=== PATIENT | female | born 1955 | race Hispanic/Latino ===

== ENCOUNTER → 2019-11-18 | Day surgery (SDC) | payer MEDICARE, OTHER ==
[2019-11-12 12:03] LABS: BASOPHILS % 0.4 % (0.0-1.0); EOSINOPHILS # (AUTO) 0.2 (0.0-0.4); EOSINOPHILS % 4.3 % (0.0-6.0); HEMATOCRIT 29.7 % (34.2-44.1); LYMPHOCYTES # (AUTO) 0.9 (1.0-3.2); LYMPHOCYTES % 16.7 % (18.0-39.1); MEAN CORPUSCULAR HEMOGLOBIN 25.8 pg (28-32); MEAN CORPUSCULAR HGB CONC 30.3 g/dL (31-35); MEAN CORPUSCULAR VOLUME 85.1 fL (81-99); MONOCYTES # (AUTO) 0.6 (0.2-0.8); MONOCYTES % 9.9 % (4.4-11.3); NEUTROPHILS # (AUTO) 3.8 (2.1-6.9); NEUTROPHILS % 67.6 % (38.7-80.0); PLATELET COUNT 332 x10e3/uL (140-360); RED BLOOD COUNT 3.49 x10e6/uL (3.6-5.1); RED CELL DISTRIBUTION WIDTH 14.8 % (11.7-14.4)
[~2019-11-18] MED LIST: DICLOFENAC TOP; FENTANYL CITRATE/PF 100MCG/2 ML INJ ONE; FUROSEMIDE40 MG PO; GABAPENTIN300 MG PO; HYDRALAZINE HCL 20 MG/ML VIAL ONE; HYDRALAZINE HCL25 MG PO; LACTULOSE20 GM/30 M PO; LEVEMIR FL100 UNIT/1 SC; LEVOTHYROXINE112 MCG PO; MIDAZOLAM HCL 2 MG/2 ML VIAL ONE; PROPOFOL IV EMULSION 10 MG/ML 20 ML VIAL ONE; PROTONIX20 MG PO; SIMVASTATIN40 MG PO; ULTRAM 50MG50 MG PO; ZESTRIL20 MG PO; [UNRECOGNIZED DRUG - OTHER] PO
[2019-11-18 12:50] VITALS: BP 166/62
== END | disposition home or self-care (01) ==
LOC: OR 09:00
PROVIDERS: ATTEND Internal Medicine
DX: D64.9 Anemia, unspecified (principal); D12.3 Benign neoplasm of transverse colon; K62.1 Rectal polyp; K29.70 Gastritis, unspecified, without bleeding; K64.0 First degree hemorrhoids; K59.09 Other constipation; K44.9 Diaphragmatic hernia without obstruction or gangrene; G47.30 Sleep apnea, unspecified; E11.22 Type 2 diabetes mellitus with diabetic chronic kidney disease; I12.9 Hypertensive chronic kidney disease with stage 1 through stage 4 chronic kidney disease, or unspecified chronic kidney disease; N18.9 Chronic kidney disease, unspecified; E66.01 Morbid (severe) obesity due to excess calories; E03.9 Hypothyroidism, unspecified; Z01.810 Encounter for preprocedural cardiovascular examination; Z01.812 Encounter for preprocedural laboratory examination; Z11.59 Encounter for screening for other viral diseases
CPT/HCPCS: 36415 ×2; 43239; 45380; 45385; 82948; 85025; 93005; J0360; J2250; J2704; J3010; U0002